=== PATIENT | male | born 1950 | race Caucasian/White ===

== ENCOUNTER 2020-12-02 17:25 | Emergency (ER) | payer OTHER, MEDICARE, SELFPAY ==
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
[2020-12-02 17:32] VITALS: BP 138/85; PULSE 96; RESP 20; TEMP 36.8; O2SAT 97; BMI 26.5
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
[2020-12-02] MEDS: Ibuprofen 600 MG TABLET PO (18:38)
--- NOTE | 2020-12-02 19:24 | PC.NURSE ---
HARD COLLAR REMOVED BY DR. ASHTON.
== END 2020-12-02 19:25 | disposition home or self-care (01) ==
PROVIDERS: Emergency Provider Internal Medicine
DX: S19.9XXA Unspecified injury of neck, initial encounter (principal); M54.2 Cervicalgia; V43.52XA Car driver injured in collision with other type car in traffic accident, initial encounter; Y93.9 Activity, unspecified; Y92.410 Unspecified street and highway as the place of occurrence of the external cause; Y99.9 Unspecified external cause status
CPT/HCPCS: 72040; 99283; 99284